=== PATIENT | female | born 2000 | race Caucasian/White ===

== ENCOUNTER 2025-01-23 10:09 | Day surgery (SDC) | payer OTHER ==
[2025-01-20 14:34] VITALS: BMI 30.9
[2025-01-23 10:32] VITALS: TEMP 97.9
[2025-01-23 11:53] VITALS: PULSE 88; RESP 18
[2025-01-23 13:24] VITALS: BP 100/56
== END 2025-01-23 12:45 | disposition home or self-care (01) ==
LOC: FASU-ENDO 10:09
PROVIDERS: ATTEND Internal Medicine Gastroenterology
PROC: 0DB68ZX Excision of Stomach, Via Natural or Artificial Opening Endoscopic, Diagnostic (ICD-10-PCS; 2025-01-23)
PROC: 0DB48ZX Excision of Esophagogastric Junction, Via Natural or Artificial Opening Endoscopic, Diagnostic (ICD-10-PCS; 2025-01-23)
PROC: 0DB98ZX Excision of Duodenum, Via Natural or Artificial Opening Endoscopic, Diagnostic (ICD-10-PCS; principal; 2025-01-23 11:33)
DX: K29.50 Unspecified chronic gastritis without bleeding (principal); K20.90 Esophagitis, unspecified without bleeding; R10.13 Epigastric pain
CPT/HCPCS: 81025; 88305-TC; 88342-TC